=== PATIENT | female | born 1975 | race Caucasian/White ===

== ENCOUNTER 2017-05-31 08:39 | Outpatient (RCR) | payer BC ==
[~2017-05-31 08:39] MED LIST: FERR325T24 PO; IBUP200C72 PO; OXYC-865 PO; PNV1CAPS53 PO; SENN-187 PO; SIME80TA6 PO
--- NOTE | 2017-05-31 09:40 | RADIOLOGY IMAGING REPORT ---
FACILITY: [facility] PATIENT NAME: Yennifer Higgins : 1975 MR: [id number] V: [id number] EXAM DATE: ORDERING PHYSICIAN: NEISHA CHO TECHNOLOGIST: Location: [facility] [place] Patient: Yennifer Higgins : 1975 Visit/Account:[id number] Date of Sevice: 05/31/2017 T SPINE W/O CONTRAST INDICATION: Back pain COMPARISON: None available TECHNIQUE: Multiplane noncontrast imaging performed through the thoracic spine. FINDINGS: Vertebral body heights are normal. Normal static alignment. Upper endplate Schmorl's nodes at T11, T1 2 and L1, largest at T12. Minimal degenerative edema surrounds the T9-10 disc space. Mild T8-9 and T9 -10 degenerative disc disease. No cord signal abnormality. The visible extraspinal structures are normal. Small C6-7 disc protrusion results in mild unchanged canal narrowing. Approximate 1.5 mm AP dimension posterior T8-9 disc extrusion results in no canal narrowing. Minimal T9-10 and T10-11 disc protrusions result in no canal narrowing. Posterior fiducial markers at the T3 and T12 vertebral body levels in the regions of apparent pain. Normal foramen. IMPRESSION: 1. No cord signal abnormality. No canal or foraminal narrowing. 2. Mild T9-10 and T10-11 degenerative disc disease. 3. Degenerative Schmorl's nodes within the T11-L1 upper endplates. Report Dictated By: Chris Meade MD at 05/31/2017 9:29 AM Report E-Signed By: Chris Meade MD at 05/31/2017 9:36 AM [id number]
--- NOTE | 2017-06-01 10:35 | RADIOLOGY IMAGING REPORT ---
FACILITY: [facility] [place] PATIENT NAME: Yennifer Higgins : 1975 MR: [id number] V: [id number] EXAM DATE: ORDERING PHYSICIAN: NEISHA CHO TECHNOLOGIST: Location: [facility] [place] Patient: Yennifer Higgins : 1975 Visit/Account:[id number] Date of Sevice: 06/01/2017 L SPINE W/O CONTRAST HISTORY: Back pain ADDITIONAL HISTORY: None. TECHNIQUE: Multi-planar multi-sequence MRI lumbar without intravenous contrast. CONTRAST: None. COMPARISON: None. FINDINGS: Alignment: Normal. Marrow signal: Unremarkable. Distal thoracic cord: Unremarkable. Conus: Normal, at the level of L1. Cauda equina: Unremarkable. Paravertebral soft tissues: Unremarkable. Visualized abdominal and pelvic structures: Unremarkable. Disc Spaces: Lower T spine: Negative. L1-2: Mild posterior broad-based disc protrusion is seen, without central canal or right or left neur al foramen stenosis. L2-3: Central canal and neural foramen are patent. L3-4: Central canal and neural foramen are patent. L4-5: Spinal canal and neural foramen are patent. L5-S1: Spinal canal and neural foramen are patent. IMPRESSION: Negative MRI lumbar spine. No evidence of central canal or right or left neural foramen stenosis. Report Dictated By: Jorge Aragon at 06/01/2017 10:22 AM Report E-Signed By: Jorge Aragon at 06/01/2017 10:29 AM WSN:[id number]
== END 2017-06-01 18:00 | disposition home or self-care (01) ==
LOC: MRI 08:39 → EDSTATUS 06-01 08:39 → MRI 06-01 18:00
PROVIDERS: ATTEND Orthopaedic Surgery Orthopaedic Surgery of the Spine
DX: M54.6 Pain in thoracic spine (principal); M54.14 Radiculopathy, thoracic region; M54.5 Low back pain
CPT/HCPCS: 72146; 72148

== ENCOUNTER → 2018-04-03 | Outpatient (CLI) | payer BC ==
[2018-04-03 08:18] LABS: PLATELET COUNT, AUTOMATED 228 K/uL (150-450)
[2018-04-03 08:34] LABS: LDL CHOLESTEROL 98 mg/dl
== END ==
LOC: LAB 08:06
PROVIDERS: ATTEND Obstetrics & Gynecology
DX: Z12.31 Encounter for screening mammogram for malignant neoplasm of breast (principal); Z01.419 Encounter for gynecological examination (general) (routine) without abnormal findings
CPT/HCPCS: 36415; 82040; 82247; 82310; 82374; 82435; 82465; 82565; 82947; 83718; 84075; 84132; 84155; 84295; 84443; 84450; 84460; 84478; 84520; 85025